=== PATIENT | male | born 1960 | race Caucasian/White ===

== ENCOUNTER 2017-06-29 11:24 | Inpatient (IN) | payer MEDICARE, OTHER ==
[~2017-06-29] VITALS: Ht 193 cm; Wt 115.0 kg
[~2017-06-29 11:24] MED LIST: BUSP10TA3 PO; GABA-338 PO; LISI40TA4 PO; QUET25TA PO; TRAZ-91 PO
[2017-06-29] MEDS ORDERED: normal saline 1000ML IV soln IV ONE (11:45)
[2017-06-29] MEDS ORDERED: acetaminophen 325mg tablet PO ONE (12:20)
[2017-06-29 12:29] LABS: BASOPHILS % (AUTO) 0.1 % (0-1); EOSINOPHILS % (AUTO) 0.2 % (0-6); HEMATOCRIT 42.6 % (42.0-52.0); HEMOGLOBIN 14.4 g/dl (14.0-17.9); LYMPHOCYTES # (AUTO) 0.3 X10'3 (1.1-4.8); LYMPHOCYTES % (AUTO) 3.1 % (21-51); MEAN CORPUSCULAR HEMOGLOBIN 29.3 PG (27.0-31.0); MEAN CORPUSCULAR HGB CONC 33.8 % (33.0-36.5); MEAN CORPUSCULAR VOLUME 86.6 FL (78-98); MEAN PLATELET VOLUME 7.2 FL (7.4-10.4); MONOCYTES # (AUTO) 0.8 X10'3 (0-0.9); MONOCYTES % (AUTO) 7.8 % (2-12); NEUTROPHILS # (AUTO) 9.4 X10'3 (1.8-7.7); NEUTROPHILS % (AUTO) 88.8 % (42-75); PLATELET COUNT 277 X10'3 (140-440); RED BLOOD COUNT 4.92 X10'6 (4.70-6.10); RED CELL DISTRIBUTION WIDTH 13.7 % (11.5-14.5); WHITE BLOOD COUNT 10.6 X10'3 (4.5-11.0)
[2017-06-29 12:45] LABS: INR 1.1 INR; PARTIAL THROMBOPLASTIN TIME 28 SECONDS (22-32)
[2017-06-29] MEDS ORDERED: levoFLOXACIN-Levaquin 750MG/D5 150 ML IV STA (12:48)
[2017-06-29] MEDS ORDERED: azithromycin/NS 500mg/250ml 250 ML IV ONE (12:50)
[2017-06-29 12:52] LABS: ALANINE AMINOTRANSFERASE 35 U/L (12-78); ALBUMIN 2.4 G/DL (3.4-5.0); ALBUMIN/GLOBULIN RATIO 0.5 (1.1-1.5); ALKALINE PHOSPHATASE 89 IU/L (46-116); ANION GAP 11 (8-16); ASPARTATE AMINO TRANSFERASE 24 U/L (10-37); BLOOD UREA NITROGEN 15 MG/DL (7-18); BUN/CREATININE RATIO 12.6 (5.4-32.0); CALCIUM 8.5 MG/DL (8.5-10.1); CHLORIDE 99 MMOL/L (99-107); CREATININE 1.19 MG/DL (0.60-1.10); GLUCOSE 319 MG/DL (70-104); MAGNESIUM 1.6 MG/DL (1.5-2.4); POTASSIUM 3.4 MMOL/L (3.5-5.1); SODIUM 137 MMOL/L (135-145); TOTAL CARBON DIOXIDE 27.2 MMOL/L (24-32); eGFR 63 ML/MIN
[2017-06-29 12:55] LABS: TOTAL CELLS COUNTED 100
[2017-06-29 12:56] LABS: PLATELET ESTIMATE NORMAL
[2017-06-29 14:30] LABS: CLARITY,URINE CLEAR (Clear); COLOR,URINE YELLOW (Yellow); GLUCOSE, URINE >=1000 mg/dl (Neg); KETONES,URINE 40 mg/dl (Neg); LEUKOCYTE ESTERASE ,URINE NEGATIVE (Neg); NITRITES, URINE NEGATIVE (Neg); OCCULT BLOOD,URINE MODERATE (Neg); PROTEIN,URINE 100 mg/dl (Neg)
[2017-06-29 14:31] LABS: UA COLLECTION TYPE NON-SPECIFIED
[2017-06-29 14:50] LABS: BACTERIA,URINE FEW /HPF (Neg); SQUAMOUS EPITHELIAL CELL,UR FEW /LPF (FEW); WBC,URINE 0-4 /HPF (0-4)
[2017-06-29] MEDS: K and/or MAG REPLACEMENT MC SCH (15:00)
[2017-06-29] MEDS ORDERED: potassium Cl 20 mEq SR tablet PO PRN ×2 (15:05)
[2017-06-29] MEDS ORDERED: ondansetron/PF 4mg/2ml inj IV PRN (15:05)
[2017-06-29] MEDS ORDERED: acetaminophen 325mg tablet PO PRN ×2 (15:05)
[2017-06-29] MEDS ORDERED: mag hydrox/Alum hydrox/simeth 30ml oral suspension PO PRN (15:05)
[2017-06-29] MEDS ORDERED: magnesium hydroxide 30ml (MOM) UD suspension PO PRN (15:05)
[2017-06-29] MEDS ORDERED: HYDROcodone/acetaminophen 5mg/325mg tablet PO PRN (15:05)
[2017-06-29] MEDS ORDERED: potassium Cl 40MEQ/NS 500ml 500 ML IV PRN ×2 (15:05)
[2017-06-29 15:32] LABS: HEMOGLOBIN A1C 11.5 % (4.5-6.2)
[2017-06-29] MEDS: heparin, porcine 5000 units/ml vial SQ SCH (16:00)
[2017-06-29 16:40] VITALS: BP 159/84
[2017-06-29] MEDS: normal saline 1000ml 1,000 ML IV SCH (17:14)
[2017-06-29] MEDS: metoprolol succinate 25mg (24-HOUR) SR. Tablet PO SCH (17:16)
[2017-06-29] MEDS ORDERED: dextrose ORAL solution 15 GM/59 ML bottle PO PRN ×2 (17:40)
[2017-06-29] MEDS ORDERED: MESSAGE TO PHARMACY PO ONE (17:40)
[2017-06-29] MEDS ORDERED: glucagon, human recombinant 1mg kit SUBCUT PRN (17:40)
[2017-06-29] MEDS ORDERED: dextrose 50%-water 50ml dispensing syringe IV PRN ×2 (17:40)
[2017-06-29 18:00] VITALS: BP 149/95
[2017-06-29] MEDS: insulin Lispro (HumaLOG) vial - multi-dose SQ SCH ×2 (19:13→21:56)
[2017-06-29] MEDS: gabapentin 300mg capsule PO SCH (19:45)
[2017-06-29] MEDS: busPIRone 5mg tablet PO SCH ×2 (19:46→21:00)
[2017-06-29] MEDS ORDERED: methylPREDNISolone sod succ 125mg/2ml vial IV ONE (20:00)
[2017-06-29] MEDS ORDERED: levalbuterol 1.25mg/0.5ml nebule IH ONE (20:00)
[2017-06-29] MEDS ORDERED: albuterol 2.5 MG/3 ML nebule NEB PRN (20:30)
[2017-06-29] MEDS: levalbuterol 1.25mg/0.5ml nebule IH SCH (20:32)
[2017-06-29] MEDS ORDERED: TRAZODONE HCL 200 MG PO SCH (21:00)
[2017-06-29] MEDS ORDERED: BUSPIRONE HCL PO SCH (21:00)
[2017-06-29] MEDS: methylPREDNISolone sod succ/PF 40mg inj. IV SCH (21:44)
[2017-06-29] MEDS: QUEtiapine 25mg tablet PO SCH (21:45)
[2017-06-29] MEDS: traZODone 50mg tablet PO SCH (21:45)
[2017-06-29] MEDS: Insulin Detemir pen SQ SCH (21:52)
[2017-06-29 22:46] LABS: ABG BASE EXCESS 0.1 mmol/L (-2.0-3.0); ABG HCO3 22.3 mmol/L (22.0-26.0); ABG OXYGEN SATURATION 94.8 % (95-98); ABG PCO2 (T) 31.4 mmHg (35.0-48.0); ABG PH (T) 7.475 (7.350-7.450); ABG PO2 (T) 73.8 mmHg (83-108); ALLEN'S TEST Positive; FLOW 4 L/min; FMetHb 0.1 % (0.3-1.12); FO2Hb 94.7 % (94-100); PATIENT TEMPERATURE 38.5; TOTAL HEMOGLOBIN 12.9 G/dl (14.0-18.0)
[2017-06-30] VITALS: BP 145/80
[2017-06-30] MEDS: normal saline 1000ml 1,000 ML IV SCH ×4 (01:02→21:02)
[2017-06-30] MEDS: heparin, porcine 5000 units/ml vial SQ SCH ×3 (01:11→17:09)
[2017-06-30] MEDS: gabapentin 300mg capsule PO SCH ×4 (01:14→21:25)
[2017-06-30] MEDS: levalbuterol 1.25mg/0.5ml nebule IH SCH ×4 (03:15→20:47)
[2017-06-30 04:00] VITALS: BP 130/80
[2017-06-30 05:56] LABS: BASOPHILS % (AUTO) 0 % (0-1); EOSINOPHILS % (AUTO) 0 % (0-6); HEMATOCRIT 36.1 % (42.0-52.0); HEMOGLOBIN 12.2 g/dl (14.0-17.9); LYMPHOCYTES # (AUTO) 0.6 X10'3 (1.1-4.8); LYMPHOCYTES % (AUTO) 5.3 % (21-51); MEAN CORPUSCULAR HEMOGLOBIN 29.5 PG (27.0-31.0); MEAN CORPUSCULAR HGB CONC 33.7 % (33.0-36.5); MEAN CORPUSCULAR VOLUME 87.6 FL (78-98); MEAN PLATELET VOLUME 7.1 FL (7.4-10.4); MONOCYTES # (AUTO) 0.8 X10'3 (0-0.9); MONOCYTES % (AUTO) 7.4 % (2-12); NEUTROPHILS # (AUTO) 9.5 X10'3 (1.8-7.7); NEUTROPHILS % (AUTO) 87.3 % (42-75); PLATELET COUNT 300 X10'3 (140-440); RED BLOOD COUNT 4.13 X10'6 (4.70-6.10); RED CELL DISTRIBUTION WIDTH 13.6 % (11.5-14.5); WHITE BLOOD COUNT 10.9 X10'3 (4.5-11.0)
[2017-06-30 06:24] LABS: ALBUMIN 1.9 G/DL (3.4-5.0); ANION GAP 12 (8-16); BLOOD UREA NITROGEN 16 MG/DL (7-18); CALCIUM 7.8 MG/DL (8.5-10.1); CHLORIDE 106 MMOL/L (99-107); GLUCOSE 239 MG/DL (70-104); POTASSIUM 3.7 MMOL/L (3.5-5.1); SODIUM 141 MMOL/L (135-145); TOTAL CARBON DIOXIDE 23.1 MMOL/L (24-32); eGFR 78 ML/MIN
[2017-06-30 06:56] VITALS: BP 149/96
[2017-06-30] MEDS: K and/or MAG REPLACEMENT MC SCH (08:00)
[2017-06-30] MEDS ORDERED: non-formulary drug (Lisinopril* 1 TAB) PO SCH (08:00)
[2017-06-30] MEDS: levoFLOXACIN-Levaquin 750MG/D5 150 ML IV SCH (08:37)
[2017-06-30] MEDS: busPIRone 5mg tablet PO SCH ×3 (08:38→21:23)
[2017-06-30] MEDS: lisinopril 20mg tablet PO SCH (08:38)
[2017-06-30] MEDS: metoprolol succinate 25mg (24-HOUR) SR. Tablet PO SCH (08:39)
[2017-06-30] MEDS: methylPREDNISolone sod succ/PF 40mg inj. IV SCH ×3 (08:39→21:23)
[2017-06-30] MEDS: insulin Lispro (HumaLOG) vial - multi-dose SQ SCH ×4 (08:53→21:19)
[2017-06-30 11:15] VITALS: BP 133/93
[2017-06-30] MEDS ORDERED: cefTRIAXone 1g/NS 100ml IVPB 100 ML IV SCH (11:50)
[2017-06-30] MEDS: lactobacillus rhamnosus 10,000 MMU CELLS/CAPSULE PO SCH (17:09)
[2017-06-30 19:00] VITALS: BP 150/91
[2017-06-30] MEDS: fluticasone furoate 100MCG/puff inhaler IH SCH (20:47)
[2017-06-30] MEDS: Insulin Detemir pen SQ SCH (21:20)
[2017-06-30] MEDS: guaiFENesin ER 600mg tablet PO SCH (21:23)
[2017-06-30] MEDS: QUEtiapine 25mg tablet PO SCH (21:24)
[2017-06-30] MEDS: traZODone 50mg tablet PO SCH (21:28)
[2017-06-30 23:00] VITALS: BP 131/79
[2017-07-01] MEDS: heparin, porcine 5000 units/ml vial SQ SCH ×4 (00:04→23:26)
[2017-07-01] MEDS: gabapentin 300mg capsule PO SCH ×4 (02:00→20:00)
[2017-07-01] MEDS: normal saline 1000ml 1,000 ML IV SCH ×2 (02:34→13:53)
[2017-07-01] MEDS: levalbuterol 1.25mg/0.5ml nebule IH SCH ×4 (03:03→20:51)
[2017-07-01 04:59] LABS: BASOPHILS % (AUTO) 0 % (0-1); EOSINOPHILS % (AUTO) 0 % (0-6); HEMATOCRIT 36.2 % (42.0-52.0); HEMOGLOBIN 12.3 g/dl (14.0-17.9); LYMPHOCYTES # (AUTO) 0.6 X10'3 (1.1-4.8); LYMPHOCYTES % (AUTO) 4.8 % (21-51); MEAN CORPUSCULAR HEMOGLOBIN 29.5 PG (27.0-31.0); MEAN CORPUSCULAR HGB CONC 33.9 % (33.0-36.5); MEAN CORPUSCULAR VOLUME 87.1 FL (78-98); MEAN PLATELET VOLUME 7.2 FL (7.4-10.4); MONOCYTES # (AUTO) 0.7 X10'3 (0-0.9); MONOCYTES % (AUTO) 5.6 % (2-12); NEUTROPHILS # (AUTO) 10.5 X10'3 (1.8-7.7); NEUTROPHILS % (AUTO) 89.6 % (42-75); PLATELET COUNT 361 X10'3 (140-440); RED BLOOD COUNT 4.15 X10'6 (4.70-6.10); RED CELL DISTRIBUTION WIDTH 14.3 % (11.5-14.5); WHITE BLOOD COUNT 11.7 X10'3 (4.5-11.0)
[2017-07-01 05:22] LABS: ALBUMIN 1.9 G/DL (3.4-5.0); ANION GAP 10 (8-16); BLOOD UREA NITROGEN 26 MG/DL (7-18); CALCIUM 8.4 MG/DL (8.5-10.1); CHLORIDE 108 MMOL/L (99-107); CREATININE 0.93 MG/DL (0.60-1.10); GLUCOSE 288 MG/DL (70-104); POTASSIUM 3.7 MMOL/L (3.5-5.1); SODIUM 143 MMOL/L (135-145); TOTAL CARBON DIOXIDE 25.3 MMOL/L (24-32); eGFR 84 ML/MIN
[2017-07-01] MEDS: lactobacillus rhamnosus 10,000 MMU CELLS/CAPSULE PO SCH ×2 (07:30→17:38)
[2017-07-01] MEDS: K and/or MAG REPLACEMENT MC SCH (08:00)
[2017-07-01] MEDS: fluticasone furoate 100MCG/puff inhaler IH SCH (08:15)
[2017-07-01] MEDS: guaiFENesin ER 600mg tablet PO SCH ×2 (09:03→20:00)
[2017-07-01] MEDS: levoFLOXACIN-Levaquin 750MG/D5 150 ML IV SCH (09:03)
[2017-07-01] MEDS: metoprolol succinate 25mg (24-HOUR) SR. Tablet PO SCH (09:03)
[2017-07-01] MEDS: methylPREDNISolone sod succ/PF 40mg inj. IV SCH ×4 (09:03→21:40)
[2017-07-01] MEDS: lisinopril 20mg tablet PO SCH (09:03)
[2017-07-01] MEDS: insulin Lispro (HumaLOG) vial - multi-dose SQ SCH ×2 (09:19→13:49)
[2017-07-01] MEDS: busPIRone 5mg tablet PO SCH ×3 (09:24→21:15)
[2017-07-01] MEDS ORDERED: insulin glargine (Lantus) pen - multi-dose SQ ONE (09:40)
[2017-07-01] MEDS ORDERED: Insulin Detemir pen SQ ONE (10:00)
[2017-07-01] MEDS: CefTRIAXone/D5W-Rocephin 1gm 50 ML IV SCH (10:35)
[2017-07-01] MEDS: HYDROcodone/acetaminophen 10/325mg tab PO PRN ×2 (17:38→23:26)
[2017-07-01 20:00] VITALS: BP 179/84
[2017-07-01] MEDS: traZODone 50mg tablet PO SCH (21:15)
[2017-07-01] MEDS: Insulin Detemir pen SQ SCH (21:15)
[2017-07-01] MEDS: QUEtiapine 25mg tablet PO SCH (21:17)
[2017-07-02] VITALS: BP 176/94
[2017-07-02] MEDS: normal saline 1000ml 1,000 ML IV SCH ×3 (00:32→23:02)
[2017-07-02] MEDS: gabapentin 300mg capsule PO SCH ×4 (02:00→19:39)
[2017-07-02] MEDS: levalbuterol 1.25mg/0.5ml nebule IH SCH ×4 (02:53→20:52)
[2017-07-02 06:07] LABS: BASOPHILS % (AUTO) 0 % (0-1); EOSINOPHILS # (AUTO) 0.2 X10'3 (0-0.9); EOSINOPHILS % (AUTO) 1.6 % (0-6); HEMATOCRIT 33.7 % (42.0-52.0); HEMOGLOBIN 11.3 g/dl (14.0-17.9); LYMPHOCYTES # (AUTO) 0.8 X10'3 (1.1-4.8); LYMPHOCYTES % (AUTO) 6.7 % (21-51); MEAN CORPUSCULAR HEMOGLOBIN 29.1 PG (27.0-31.0); MEAN CORPUSCULAR HGB CONC 33.4 % (33.0-36.5); MEAN PLATELET VOLUME 7.1 FL (7.4-10.4); MONOCYTES # (AUTO) 0.5 X10'3 (0-0.9); MONOCYTES % (AUTO) 4.7 % (2-12); NEUTROPHILS # (AUTO) 9.9 X10'3 (1.8-7.7); PLATELET COUNT 372 X10'3 (140-440); RED BLOOD COUNT 3.88 X10'6 (4.70-6.10); RED CELL DISTRIBUTION WIDTH 13.6 % (11.5-14.5); WHITE BLOOD COUNT 11.4 X10'3 (4.5-11.0)
[2017-07-02 07:00] VITALS: BP 139/85
[2017-07-02 07:10] LABS: ALBUMIN 1.8 G/DL (3.4-5.0); ANION GAP 9 (8-16); BLOOD UREA NITROGEN 28 MG/DL (7-18); BUN/CREATININE RATIO 27.2 (5.4-32.0); CALCIUM 8.1 MG/DL (8.5-10.1); CHLORIDE 108 MMOL/L (99-107); CREATININE 1.03 MG/DL (0.60-1.10); GLUCOSE 267 MG/DL (70-104); POTASSIUM 4.2 MMOL/L (3.5-5.1); SODIUM 142 MMOL/L (135-145); TOTAL CARBON DIOXIDE 25.1 MMOL/L (24-32); eGFR 75 ML/MIN
[2017-07-02] MEDS: levoFLOXACIN-Levaquin 750MG/D5 150 ML IV SCH (07:12)
[2017-07-02] MEDS: lisinopril 20mg tablet PO SCH (07:12)
[2017-07-02] MEDS: methylPREDNISolone sod succ/PF 40mg inj. IV SCH ×3 (07:12→21:25)
[2017-07-02] MEDS: metoprolol succinate 25mg (24-HOUR) SR. Tablet PO SCH (07:12)
[2017-07-02] MEDS: guaiFENesin ER 600mg tablet PO SCH ×2 (07:13→19:39)
[2017-07-02] MEDS: busPIRone 5mg tablet PO SCH ×3 (07:13→21:26)
[2017-07-02] MEDS: lactobacillus rhamnosus 10,000 MMU CELLS/CAPSULE PO SCH ×2 (07:13→17:56)
[2017-07-02] MEDS: heparin, porcine 5000 units/ml vial SQ SCH ×2 (07:13→16:00)
[2017-07-02] MEDS: K and/or MAG REPLACEMENT MC SCH (07:16)
[2017-07-02] MEDS: fluticasone furoate 100MCG/puff inhaler IH SCH (07:44)
[2017-07-02] MEDS: insulin Lispro (HumaLOG) vial - multi-dose SQ SCH ×3 (09:10→19:50)
[2017-07-02] MEDS: CefTRIAXone/D5W-Rocephin 1gm 50 ML IV SCH (09:11)
[2017-07-02 11:00] VITALS: BP 147/87
[2017-07-02] MEDS ORDERED: NO HOME MEDS (12:59)
[2017-07-02] MEDS: HYDROcodone/acetaminophen 10/325mg tab PO PRN ×2 (13:49→21:25)
[2017-07-02 19:00] VITALS: BP 147/51
[2017-07-02] MEDS: traZODone 50mg tablet PO SCH (21:26)
[2017-07-02] MEDS: Insulin Detemir pen SQ SCH (21:32)
[2017-07-02] MEDS: QUEtiapine 25mg tablet PO SCH (21:35)
[2017-07-03] VITALS: BP 147/84
[2017-07-03] MEDS: gabapentin 300mg capsule PO SCH ×4 (02:25→20:38)
[2017-07-03] MEDS: heparin, porcine 5000 units/ml vial SQ SCH ×3 (02:25→16:44)
[2017-07-03] MEDS: levalbuterol 1.25mg/0.5ml nebule IH SCH ×4 (03:13→20:47)
[2017-07-03] MEDS: normal saline 1000ml 1,000 ML IV SCH (04:41)
[2017-07-03 06:20] LABS: ALBUMIN 1.9 G/DL (3.4-5.0); ANION GAP 5 (8-16); BLOOD UREA NITROGEN 24 MG/DL (7-18); BUN/CREATININE RATIO 24.5 (5.4-32.0); CHLORIDE 107 MMOL/L (99-107); CREATININE 0.98 MG/DL (0.60-1.10); GLUCOSE 212 MG/DL (70-104); POTASSIUM 4.3 MMOL/L (3.5-5.1); SODIUM 139 MMOL/L (135-145); TOTAL CARBON DIOXIDE 26.8 MMOL/L (24-32); eGFR 79 ML/MIN
[2017-07-03 06:21] LABS: BASOPHILS % (AUTO) 0 % (0-1); EOSINOPHILS # (AUTO) 0.2 X10'3 (0-0.9); EOSINOPHILS % (AUTO) 1.3 % (0-6); HEMATOCRIT 36.9 % (42.0-52.0); HEMOGLOBIN 12.5 g/dl (14.0-17.9); LYMPHOCYTES % (AUTO) 6.5 % (21-51); MEAN CORPUSCULAR HEMOGLOBIN 29.3 PG (27.0-31.0); MEAN CORPUSCULAR HGB CONC 33.8 % (33.0-36.5); MEAN CORPUSCULAR VOLUME 86.6 FL (78-98); MEAN PLATELET VOLUME 7.3 FL (7.4-10.4); MONOCYTES # (AUTO) 0.6 X10'3 (0-0.9); NEUTROPHILS # (AUTO) 12.9 X10'3 (1.8-7.7); NEUTROPHILS % (AUTO) 88.2 % (42-75); PLATELET COUNT 412 X10'3 (140-440); RED BLOOD COUNT 4.26 X10'6 (4.70-6.10); RED CELL DISTRIBUTION WIDTH 13.4 % (11.5-14.5); WHITE BLOOD COUNT 14.7 X10'3 (4.5-11.0)
[2017-07-03 07:19] VITALS: BP 159/92
[2017-07-03] MEDS: K and/or MAG REPLACEMENT MC SCH (07:30)
[2017-07-03] MEDS: methylPREDNISolone sod succ/PF 40mg inj. IV SCH (07:34)
[2017-07-03] MEDS: levoFLOXACIN-Levaquin 750MG/D5 150 ML IV SCH (07:34)
[2017-07-03] MEDS: guaiFENesin ER 600mg tablet PO SCH ×2 (07:35→20:37)
[2017-07-03] MEDS: lactobacillus rhamnosus 10,000 MMU CELLS/CAPSULE PO SCH ×2 (07:35→16:43)
[2017-07-03] MEDS: busPIRone 5mg tablet PO SCH ×3 (07:35→20:37)
[2017-07-03] MEDS: lisinopril 20mg tablet PO SCH (07:35)
[2017-07-03] MEDS: metoprolol succinate 25mg (24-HOUR) SR. Tablet PO SCH (07:35)
[2017-07-03] MEDS: fluticasone furoate 100MCG/puff inhaler IH SCH (08:28)
[2017-07-03] MEDS: insulin Lispro (HumaLOG) vial - multi-dose SQ SCH ×3 (08:45→19:05)
[2017-07-03] MEDS: cefTRIAXone 1g/NS 100ml IVPB 100 ML IV SCH (09:37)
[2017-07-03 09:48] LABS: PLATELET ESTIMATE NORMAL; TOTAL CELLS COUNTED 100
[2017-07-03 09:49] LABS: TOXIC GRANULATION 1+
[2017-07-03] MEDS ORDERED: pneumococcal 23-VAL P-sac vacc 25 mcg/0.5ml vial IMVAC ONE (10:00)
[2017-07-03] MEDS ORDERED: FLU VACC QS2017-18 36MOS UP/PF 60 MCG/0.5 ML SYRINGE IMVAC ONE (10:00)
[2017-07-03] MEDS: HYDROcodone/acetaminophen 10/325mg tab PO PRN ×2 (10:51→20:38)
[2017-07-03 11:14] VITALS: BP 160/99
[2017-07-03] MEDS: amLODIPine 5mg tablet PO SCH (12:39)
[2017-07-03 19:41] VITALS: BP 154/93
[2017-07-03] MEDS: traZODone 50mg tablet PO SCH (20:38)
[2017-07-03] MEDS: QUEtiapine 25mg tablet PO SCH (20:39)
[2017-07-03] MEDS: Insulin Detemir pen SQ SCH (21:33)
[2017-07-04] VITALS: BP 148/88
[2017-07-04] MEDS: heparin, porcine 5000 units/ml vial SQ SCH ×3 (02:49→15:03)
[2017-07-04] MEDS: gabapentin 300mg capsule PO SCH ×4 (02:50→19:05)
[2017-07-04] MEDS: levalbuterol 1.25mg/0.5ml nebule IH SCH ×4 (03:07→20:52)
[2017-07-04] MEDS: HYDROcodone/acetaminophen 10/325mg tab PO PRN ×3 (04:17→21:28)
[2017-07-04 06:18] LABS: BASOPHILS % (AUTO) 0 % (0-1); EOSINOPHILS # (AUTO) 0.2 X10'3 (0-0.9); EOSINOPHILS % (AUTO) 1.2 % (0-6); HEMATOCRIT 38.6 % (42.0-52.0); HEMOGLOBIN 13.1 g/dl (14.0-17.9); LYMPHOCYTES # (AUTO) 1.7 X10'3 (1.1-4.8); LYMPHOCYTES % (AUTO) 11.8 % (21-51); MEAN CORPUSCULAR HEMOGLOBIN 29.5 PG (27.0-31.0); MEAN CORPUSCULAR VOLUME 86.6 FL (78-98); MEAN PLATELET VOLUME 6.8 FL (7.4-10.4); MONOCYTES # (AUTO) 0.6 X10'3 (0-0.9); MONOCYTES % (AUTO) 4.1 % (2-12); NEUTROPHILS # (AUTO) 12.1 X10'3 (1.8-7.7); NEUTROPHILS % (AUTO) 82.9 % (42-75); PLATELET COUNT 395 X10'3 (140-440); RED BLOOD COUNT 4.46 X10'6 (4.70-6.10); RED CELL DISTRIBUTION WIDTH 13.8 % (11.5-14.5); WHITE BLOOD COUNT 14.6 X10'3 (4.5-11.0)
[2017-07-04 06:24] LABS: ANION GAP 5 (8-16); BLOOD UREA NITROGEN 24 MG/DL (7-18); BUN/CREATININE RATIO 20.2 (5.4-32.0); CALCIUM 7.8 MG/DL (8.5-10.1); CHLORIDE 105 MMOL/L (99-107); CREATININE 1.19 MG/DL (0.60-1.10); GLUCOSE 203 MG/DL (70-104); POTASSIUM 3.7 MMOL/L (3.5-5.1); SODIUM 140 MMOL/L (135-145); TOTAL CARBON DIOXIDE 30.4 MMOL/L (24-32); eGFR 63 ML/MIN
[2017-07-04 07:10] VITALS: BP 141/88
[2017-07-04] MEDS: predniSONE 20 mg tablet PO SCH (07:30)
[2017-07-04] MEDS: busPIRone 5mg tablet PO SCH ×3 (07:30→21:28)
[2017-07-04] MEDS: lisinopril 20mg tablet PO SCH (07:30)
[2017-07-04] MEDS: guaiFENesin ER 600mg tablet PO SCH ×2 (07:30→19:05)
[2017-07-04] MEDS: amLODIPine 5mg tablet PO SCH (07:30)
[2017-07-04] MEDS: metoprolol succinate 25mg (24-HOUR) SR. Tablet PO SCH (07:30)
[2017-07-04] MEDS: lactobacillus rhamnosus 10,000 MMU CELLS/CAPSULE PO SCH (07:30)
[2017-07-04] MEDS: cefTRIAXone 1g/NS 100ml IVPB 100 ML IV SCH (07:31)
[2017-07-04] MEDS: K and/or MAG REPLACEMENT MC SCH (07:31)
[2017-07-04] MEDS: fluticasone furoate 100MCG/puff inhaler IH SCH (08:18)
[2017-07-04] MEDS: levoFLOXACIN-Levaquin 750MG/D5 150 ML IV SCH (08:39)
[2017-07-04] MEDS: insulin Lispro (HumaLOG) vial - multi-dose SQ SCH ×4 (08:51→21:50)
[2017-07-04 09:21] LABS: NUCLEATED RED BLOOD CELLS 1 /100WBC (0-0); PLATELET ESTIMATE NORMAL; TOTAL CELLS COUNTED 100; TOXIC GRANULATION 2+
[2017-07-04 09:25] LABS: SMUDGE CELLS 1+
[2017-07-04 11:23] VITALS: BP 142/90
[2017-07-04] MEDS ORDERED: LACTOBACILLUS RHAMNOSUS GG 15 billion unit sprinkle caps PO SCH ×2 (16:43→19:01)
[2017-07-04 19:10] VITALS: BP 136/88
[2017-07-04] MEDS: traZODone 50mg tablet PO SCH (21:29)
[2017-07-04] MEDS: QUEtiapine 25mg tablet PO SCH (21:30)
[2017-07-04] MEDS: Insulin Detemir pen SQ SCH (21:48)
[2017-07-05] VITALS: BP 134/77
[2017-07-05] MEDS: heparin, porcine 5000 units/ml vial SQ SCH ×2 (00:03→08:16)
[2017-07-05] MEDS: gabapentin 300mg capsule PO SCH ×3 (01:31→13:28)
[2017-07-05] MEDS: levalbuterol 1.25mg/0.5ml nebule IH SCH ×3 (03:51→14:27)
[2017-07-05] MEDS: HYDROcodone/acetaminophen 10/325mg tab PO PRN ×2 (05:26→12:04)
[2017-07-05 07:00] VITALS: BP 117/66
[2017-07-05] MEDS: K and/or MAG REPLACEMENT MC SCH (08:00)
[2017-07-05] MEDS: levoFLOXACIN-Levaquin 750MG/D5 150 ML IV SCH (08:11)
[2017-07-05] MEDS: guaiFENesin ER 600mg tablet PO SCH (08:12)
[2017-07-05] MEDS: busPIRone 5mg tablet PO SCH ×2 (08:12→13:28)
[2017-07-05] MEDS: amLODIPine 5mg tablet PO SCH (08:14)
[2017-07-05] MEDS: lisinopril 20mg tablet PO SCH (08:15)
[2017-07-05] MEDS: predniSONE 20 mg tablet PO SCH (08:15)
[2017-07-05] MEDS: metoprolol succinate 25mg (24-HOUR) SR. Tablet PO SCH (08:15)
[2017-07-05] MEDS: insulin Lispro (HumaLOG) vial - multi-dose SQ SCH (08:22)
[2017-07-05] MEDS: fluticasone furoate 100MCG/puff inhaler IH SCH (08:24)
[2017-07-05 12:42] VITALS: BP 117/85
[2017-07-05] MEDS ORDERED: TRAZ-146 PO (13:15)
[2017-07-05] MEDS ORDERED: QUET50TA22 PO (13:15)
[2017-07-05] MEDS ORDERED: FLUT100B3 IH (13:15)
[2017-07-05] MEDS ORDERED: BUSP10TA11 PO (13:15)
[2017-07-05] MEDS ORDERED: AMLO5TAB16 PO (13:15)
[2017-07-05] MEDS ORDERED: PRED20TA PO (13:15)
[2017-07-05] MEDS ORDERED: GABA600T2 PO (13:15)
[2017-07-05] MEDS ORDERED: INSU100I25 SQ (13:15)
[2017-07-05] MEDS ORDERED: LISI-600 PO (13:15)
[2017-07-05] MEDS ORDERED: METO-395 PO (13:15)
[2017-07-05] MEDS ORDERED: LEVO750T21 PO (15:29)
== END 2017-07-05 15:40 | disposition home or self-care (01) | DRG 193 ==
LOC: ER 11:25 → ED HOLD 15:02 → EDBEDREQ 15:45 → MED 3N 16:10
PROVIDERS: ADMIT Family Medicine; ATTEND Family Medicine
DX: J11.08 Influenza due to unidentified influenza virus with specified pneumonia (principal); E43 Unspecified severe protein-calorie malnutrition; E11.40 Type 2 diabetes mellitus with diabetic neuropathy, unspecified; J18.1 Lobar pneumonia, unspecified organism; F43.10 Post-traumatic stress disorder, unspecified; F32.9 Major depressive disorder, single episode, unspecified; E87.6 Hypokalemia; M54.9 Dorsalgia, unspecified; G89.29 Other chronic pain; I10 Essential (primary) hypertension; F17.210 Nicotine dependence, cigarettes, uncomplicated; Z79.899 Other long term (current) drug therapy; Z82.5 Family history of asthma and other chronic lower respiratory diseases; Z68.30 Body mass index [BMI] 30.0-30.9, adult; Z23 Encounter for immunization
CPT/HCPCS: 36415; 36600; 71010; 80048; 80053; 81001; 82803; 82948; 83036; 83605; 83735; 84145; 85018; 85025; 85610; 85730; 87040; 87070; 87502; 87503; 90732; 93005; 94640; 94667; 94668; 94760; 96361; 96365; 96368; 99285; A6258; J0456; J0696; J1644; J1956; J2920; J7030; J7512; J7614; Q2037